=== PATIENT | male | born 1980 | race Caucasian/White ===

== ENCOUNTER 2018-07-09 22:29 | Inpatient (IN) | payer OTHER ==
[2018-07-09] MEDS: SOD CHLORIDE 0.9% 1,000 ML IV (23:30)
[2018-07-10] MEDS ORDERED: VANCOMYCIN IV PER PHARMACY XX (00:30)
[2018-07-10 01:01] LABS: ADD MAN DIFF? NO
[2018-07-10 01:05] LABS: WHITE BLOOD COUNT 13.1 10^3/ul (4.8-10.8)
[2018-07-10 01:05] LABS: BASOPHILS % 0.2 % (0.0-2.0); HEMATOCRIT 34.3 % (42.0-52.0); HEMOGLOBIN 11.4 g/dl (14.0-18.0); LYMPHOCYTES # 0.9 10^3/ul (0.8-2.9); LYMPHOCYTES % 6.5 % (15.0-51.0); MEAN CORPUSCULAR HGB CONC 33.2 g/dl (32.0-37.0); MEAN CORPUSCULAR VOLUME 93.2 fl (82.0-101.0); MEAN PLATELET VOLUME 10.8 fl (7.4-10.4); MONOCYTE # 0.9 10^3/ul (0.3-0.9); MONOCYTES % 6.7 % (0.0-11.0); NEUTROPHIL # 11.3 10^3/ul (1.6-7.5); PLATELET COUNT 196 10^3/UL (140-415); RED BLOOD COUNT 3.68 10^6/ul (4.70-6.10); RED CELL DISTRIBUTION WIDTH 12.2 % (11.5-14.5)
[2018-07-10 01:27] LABS: ANION GAP 12 (5-13); BLOOD UREA NITROGEN 23 mg/dl (7-20); CALCIUM 9.6 mg/dl (8.4-10.2); CARBON DIOXIDE 20 mmol/L (21-31); CHLORIDE 116 mmol/L (97-110); CREATININE 2.15 mg/dl (0.61-1.24); Estimated GFR 35 mL/min (>60); GLUCOSE 143 mg/dl (70-220); POTASSIUM 3.3 mmol/L (3.5-5.1); SODIUM 148 mmol/L (135-144)
[2018-07-10] MEDS ORDERED: VANCOMYCIN 1 GM 250 ML IVPB (03:00)
[2018-07-10] MEDS: VANCOMYCIN HCL 1.5 GM in SOD CHLORIDE 0.9% 250 ML IVPB (04:22)
[2018-07-10] MEDS: PANTOPRAZOLE 40 MG INJ IV (06:31)
[2018-07-10] MEDS: PIPER-TAZO 3.375 GM IV (PMX) 100 ML IVPB (06:31)
[2018-07-10] MEDS: LEVOTHYROXINE 75 MCG TAB PO (06:33)
[2018-07-10] MEDS: TESTOSTERONE 1% GEL 5 GM PACKET TOP (09:00)
[2018-07-10] MEDS: DIVALPROEX (EC) 500 MG TAB PO ×2 (09:03→23:07)
[2018-07-10] MEDS: predniSONE 2.5 MG TAB PO (09:03)
[2018-07-10] MEDS: OLANZAPINE 5 MG TAB PO ×2 (09:03→23:07)
[2018-07-10] MEDS: FLUDROCORTISONE 0.1 MG TAB PO (09:03)
[2018-07-10] MEDS: DOCUSATE SODIUM 100 MG CAP PO (09:04)
[2018-07-10] MEDS: BENZTROPINE 1 MG TAB PO ×2 (09:04→23:07)
[2018-07-10] MEDS: POTASSIUM CHLORIDE (SR) 20 MEQ TAB PO ×2 (09:47→13:59)
[2018-07-10 12:05] LABS: ADD UMIC YES; UR ASCORBIC ACID NEGATIVE (NEGATIVE); UR BILIRUBIN (Dip) NEGATIVE (NEGATIVE); UR BLOOD (Dip) NEGATIVE (NEGATIVE); UR CLARITY CLEAR (CLEAR); UR COLOR YELLOW (YELLOW); UR GLUCOSE (Dip) 1+ mg/dL (NEGATIVE); UR KETONES (Dip) NEGATIVE (NEGATIVE); UR LEUKOCYTE ESTERASE (Dip) NEGATIVE Leu/ul (NEGATIVE); UR NITRITE (Dip) NEGATIVE (NEGATIVE); UR RBC 4 /HPF (0-5); UR SPECIFIC GRAVITY (Dip) 1.012 (1.003-1.030); UR TOTAL PROTEIN (Dip) 1+ mg/dl (NEGATIVE); UR UROBILINOGEN (Dip) NEGATIVE (NEGATIVE); UR WBC 2 /HPF (0-5)
[2018-07-10] MEDS: CEPHALEXIN 250 MG CAP PO ×2 (13:59→23:08)
[2018-07-11] MEDS ORDERED: VANCOMYCIN 1 GM 250 ML IVPB (03:00)
[2018-07-11] MEDS: PANTOPRAZOLE 40 MG INJ IV (05:03)
[2018-07-11] MEDS: CEPHALEXIN 250 MG CAP PO ×2 (05:43→14:00)
[2018-07-11] MEDS: LEVOTHYROXINE 75 MCG TAB PO (07:00)
[2018-07-11] MEDS: TESTOSTERONE 1% GEL 5 GM PACKET TOP (09:00)
[2018-07-11] MEDS: DOCUSATE SODIUM 100 MG CAP PO (11:31)
[2018-07-11] MEDS: BENZTROPINE 1 MG TAB PO ×2 (11:31→21:16)
[2018-07-11] MEDS: DIVALPROEX (EC) 500 MG TAB PO ×2 (11:31→21:16)
[2018-07-11] MEDS: FLUDROCORTISONE 0.1 MG TAB PO (11:31)
[2018-07-11] MEDS: predniSONE 5 MG TAB PO (11:31)
[2018-07-11] MEDS: ACETAMINOPHEN 325 MG TAB PO (12:00)
[2018-07-11] MEDS: OLANZAPINE 5 MG TAB PO ×2 (12:19→22:15)
[2018-07-11] MEDS: AMOXICILLIN/CLAV 500 MG TAB PO (21:15)
[2018-07-11] MEDS: DOXYCYCLINE 100 MG TAB PO (21:16)
[2018-07-11 22:45] LABS: ANION GAP 14 (5-13); BLOOD UREA NITROGEN 22 mg/dl (7-20); CALCIUM 8.9 mg/dl (8.4-10.2); CARBON DIOXIDE 22 mmol/L (21-31); CHLORIDE 113 mmol/L (97-110); CREATININE 3.25 mg/dl (0.61-1.24); Estimated GFR 22 mL/min (>60); GLUCOSE 92 mg/dl (70-220); POTASSIUM 3.5 mmol/L (3.5-5.1); SODIUM 149 mmol/L (135-144)
[2018-07-12 04:59] LABS: ADD MAN DIFF? NO; BASOPHILS % 0.3 % (0.0-2.0); EOSINOPHILS % 0.4 % (0.0-7.0); HEMATOCRIT 31.9 % (42.0-52.0); HEMOGLOBIN 10.3 g/dl (14.0-18.0); LYMPHOCYTES # 1.7 10^3/ul (0.8-2.9); LYMPHOCYTES % 25.5 % (15.0-51.0); MEAN CORPUSCULAR HEMOGLOBIN 31.5 pg (29.0-33.0); MEAN CORPUSCULAR HGB CONC 32.3 g/dl (32.0-37.0); MEAN CORPUSCULAR VOLUME 97.6 fl (82.0-101.0); MEAN PLATELET VOLUME 10.3 fl (7.4-10.4); MONOCYTE # 0.9 10^3/ul (0.3-0.9); MONOCYTES % 13.8 % (0.0-11.0); NEUTROPHILS % 59.7 % (39.0-77.0); PLATELET COUNT 159 10^3/UL (140-415); RED BLOOD COUNT 3.27 10^6/ul (4.70-6.10); RED CELL DISTRIBUTION WIDTH 12.4 % (11.5-14.5)
[2018-07-12 04:59] LABS: WHITE BLOOD COUNT 6.7 10^3/ul (4.8-10.8)
[2018-07-12 05:26] LABS: PHOSPHORUS 3.9 mg/dl (2.5-4.9)
[2018-07-12 05:26] LABS: MAGNESIUM 1.9 mg/dl (1.7-2.5)
[2018-07-12 05:28] LABS: ANION GAP 9 (5-13); BLOOD UREA NITROGEN 23 mg/dl (7-20); CARBON DIOXIDE 21 mmol/L (21-31); CHLORIDE 120 mmol/L (97-110); CREATININE 3.17 mg/dl (0.61-1.24); Estimated GFR 22 mL/min (>60); GLUCOSE 101 mg/dl (70-220); SODIUM 150 mmol/L (135-144)
[2018-07-12 05:38] LABS: POTASSIUM 2.9 mmol/L (3.5-5.1)
[2018-07-12] MEDS: PANTOPRAZOLE (EC) 40 MG TAB PO (06:18)
[2018-07-12] MEDS: LEVOTHYROXINE 75 MCG TAB PO (06:18)
[2018-07-12] MEDS: POTASSIUM CHLORIDE (SR) 20 MEQ TAB PO ×2 (07:18→17:07)
[2018-07-12] MEDS: DOXYCYCLINE 100 MG TAB PO (08:38)
[2018-07-12] MEDS: DIVALPROEX (EC) 500 MG TAB PO ×3 (08:38→21:31)
[2018-07-12] MEDS: DOCUSATE SODIUM 100 MG CAP PO ×2 (08:38→09:00)
[2018-07-12] MEDS: BENZTROPINE 1 MG TAB PO ×3 (08:39→21:31)
[2018-07-12] MEDS: OLANZAPINE 5 MG TAB PO ×3 (08:39→21:31)
[2018-07-12] MEDS: AMOXICILLIN/CLAV 500 MG TAB PO (08:39)
[2018-07-12] MEDS: predniSONE 5 MG TAB PO (08:39)
[2018-07-12] MEDS ORDERED: predniSONE 5 MG TAB PO (09:00)
[2018-07-12] MEDS: ACETAMINOPHEN 325 MG TAB PO (09:38)
[2018-07-12] MEDS: TESTOSTERONE 1% GEL 5 GM PACKET TOP (09:38)
[2018-07-12] MEDS: FLUDROCORTISONE 0.1 MG TAB PO (09:38)
[2018-07-12] MEDS: CHLORPROMAZINE 25 MG INJ IM (10:54)
[2018-07-12] MEDS: SOD CHLORIDE 0.9% 500 ML IV (12:32)
[2018-07-12] MEDS: ONDANSETRON 4 MG INJ IV (13:04)
[2018-07-12] MEDS ORDERED: VANCOMYCIN IV PER PHARMACY XX (13:30)
[2018-07-12] MEDS: MEROPENEM 500MG/50 ML (PMX) 50 ML IVPB ×2 (14:41→21:31)
[2018-07-12] MEDS: VANCOMYCIN HCL 1.5 GM in SOD CHLORIDE 0.9% 250 ML IVPB (16:22)
[2018-07-12] MEDS: DEXTROSE 5% 1,000 ML IV (16:25)
[2018-07-12] MEDS: predniSONE 2.5 MG TAB PO ×2 (19:00→21:31)
[2018-07-12] MEDS: POTASSIUM CHLORIDE 40 MEQ in DEXTROSE 5% 1,000 ML IV (21:31)
[2018-07-13] MEDS: PANTOPRAZOLE (EC) 40 MG TAB PO (06:00)
[2018-07-13] MEDS: LEVOTHYROXINE 75 MCG TAB PO (06:52)
[2018-07-13] MEDS: DIVALPROEX (EC) 500 MG TAB PO ×2 (09:00→20:33)
[2018-07-13] MEDS ORDERED: predniSONE 2.5 MG TAB PO ×2 (09:00)
[2018-07-13] MEDS: BENZTROPINE 1 MG TAB PO ×2 (09:00→20:33)
[2018-07-13] MEDS: OLANZAPINE 5 MG TAB PO ×2 (09:00→20:33)
[2018-07-13] MEDS: DOCUSATE SODIUM 100 MG CAP PO (09:00)
[2018-07-13] MEDS: TESTOSTERONE 1% GEL 5 GM PACKET TOP (09:00)
[2018-07-13] MEDS: ACETAMINOPHEN 325 MG TAB PO (13:24)
[2018-07-13] MEDS: CHLORPROMAZINE 25 MG INJ IM (14:06)
[2018-07-13] MEDS: MEROPENEM 500MG/50 ML (PMX) 50 ML IVPB ×2 (14:53→20:33)
[2018-07-13] MEDS: ACETAMINOPHEN 1000MG/100ML IV 100 ML IVPB (14:53)
[2018-07-13] MEDS: POTASSIUM CHLORIDE 40 MEQ in DEXTROSE 5% 1,000 ML IV (14:54)
[2018-07-13] MEDS: HYDROCORTISONE 100 MG INJ IV ×2 (15:15→18:43)
[2018-07-13] MEDS: CASPOFUNGIN 70 MG in SOD CHLORIDE 0.9% 250 ML IVPB (15:43)
[2018-07-13] MEDS: POTASSIUM CHLORIDE 100 ML IVPB ×2 (16:49→20:33)
[2018-07-13 17:27] LABS: ADD MAN DIFF? NO
[2018-07-13 17:30] LABS: WHITE BLOOD COUNT 11.2 10^3/ul (4.8-10.8)
[2018-07-13 17:30] LABS: BASOPHILS % 0.2 % (0.0-2.0); EOSINOPHILS # 0.2 10^3/ul (0.0-0.5); EOSINOPHILS % 2.1 % (0.0-7.0); HEMOGLOBIN 9.5 g/dl (14.0-18.0); LYMPHOCYTES # 0.8 10^3/ul (0.8-2.9); LYMPHOCYTES % 7.4 % (15.0-51.0); MEAN CORPUSCULAR HEMOGLOBIN 30.6 pg (29.0-33.0); MEAN CORPUSCULAR HGB CONC 32.8 g/dl (32.0-37.0); MEAN CORPUSCULAR VOLUME 93.5 fl (82.0-101.0); MEAN PLATELET VOLUME 10.5 fl (7.4-10.4); PLATELET COUNT 122 10^3/UL (140-415); RED CELL DISTRIBUTION WIDTH 12.3 % (11.5-14.5)
[2018-07-13 17:50] LABS: PARTIAL THROMBOPLASTIN TIME 49.6 Sec (23.0-35.0)
[2018-07-13 17:52] LABS: PHOSPHORUS 3.5 mg/dl (2.5-4.9)
[2018-07-13 17:52] LABS: ANION GAP 8 (5-13); BLOOD UREA NITROGEN 19 mg/dl (7-20); CALCIUM 8.7 mg/dl (8.4-10.2); CARBON DIOXIDE 22 mmol/L (21-31); CHLORIDE 112 mmol/L (97-110); Estimated GFR 21 mL/min (>60); GLUCOSE 131 mg/dl (70-220); MAGNESIUM 1.7 mg/dl (1.7-2.5); POTASSIUM 3.3 mmol/L (3.5-5.1); SODIUM 142 mmol/L (135-144)
[2018-07-13 18:29] LABS: FREE THYROXINE INDEX (Calc) 2.93 ug/ml (0.65-3.89); T3 UPTAKE 41.8 % (23.5-40.5)
[2018-07-13] MEDS: SOD CHLORIDE 0.9% 250 ML IV (19:30)
[2018-07-13 20:02] LABS: LACTIC ACID 0.6 mmol/L (0.5-2.0)
[2018-07-13] MEDS: NS + KCL 20 MEQ 1,000 ML IV (23:50)
[2018-07-14] MEDS: LEVOTHYROXINE 100 MCG VIAL IV (05:31)
[2018-07-14] MEDS: PANTOPRAZOLE 40 MG INJ IV (05:31)
[2018-07-14 06:10] LABS: ADD MAN DIFF? NO
[2018-07-14 06:54] LABS: VANCOMYCIN,RANDOM 14.1 ug/ml
[2018-07-14 06:55] LABS: ANION GAP 9 (5-13); BLOOD UREA NITROGEN 23 mg/dl (7-20); CALCIUM 7.8 mg/dl (8.4-10.2); CARBON DIOXIDE 18 mmol/L (21-31); CHLORIDE 117 mmol/L (97-110); CREATININE 2.63 mg/dl (0.61-1.24); Estimated GFR 28 mL/min (>60); GLUCOSE 86 mg/dl (70-220); POTASSIUM 5.2 mmol/L (3.5-5.1); SODIUM 144 mmol/L (135-144)
[2018-07-14] MEDS: SODIUM POLYSTYRENE 15 GM KIT (POWDER + SORBITOL) PO (09:00)
[2018-07-14] MEDS: TESTOSTERONE 1% GEL 5 GM PACKET TOP (09:00)
[2018-07-14] MEDS: ENOXAPARIN 40 MG/0.4 ML SYG SC (09:30)
[2018-07-14 09:42] LABS: WHITE BLOOD COUNT 13.1 10^3/ul (4.8-10.8)
[2018-07-14 09:42] LABS: BASOPHILS % 0.1 % (0.0-2.0); EOSINOPHILS % 0.3 % (0.0-7.0); HEMATOCRIT 29.8 % (42.0-52.0); LYMPHOCYTES % 7.9 % (15.0-51.0); MEAN CORPUSCULAR HEMOGLOBIN 30.5 pg (29.0-33.0); MEAN CORPUSCULAR HGB CONC 33.6 g/dl (32.0-37.0); MEAN CORPUSCULAR VOLUME 90.9 fl (82.0-101.0); MEAN PLATELET VOLUME 10.9 fl (7.4-10.4); MONOCYTE # 0.9 10^3/ul (0.3-0.9); MONOCYTES % 6.9 % (0.0-11.0); NEUTROPHILS % 84.4 % (39.0-77.0); PLATELET COUNT 147 10^3/UL (140-415); RED BLOOD COUNT 3.28 10^6/ul (4.70-6.10); RED CELL DISTRIBUTION WIDTH 11.9 % (11.5-14.5)
[2018-07-14] MEDS: DIVALPROEX (EC) 500 MG TAB PO (10:00)
[2018-07-14] MEDS: HYDROCORTISONE 100 MG INJ IV ×2 (10:00→18:01)
[2018-07-14] MEDS: FLUDROCORTISONE 0.1 MG TAB PO (10:01)
[2018-07-14] MEDS: BENZTROPINE 1 MG TAB PO (10:01)
[2018-07-14] MEDS: OLANZAPINE 5 MG TAB PO (10:01)
[2018-07-14] MEDS: DOCUSATE SODIUM 100 MG CAP PO (10:01)
[2018-07-14] MEDS: DEXTROSE 5%-0.45% NACL 1,000 ML IV (10:03)
[2018-07-14] MEDS: MEROPENEM 500MG/50 ML (PMX) 50 ML IVPB ×2 (10:04→21:06)
[2018-07-14] MEDS: VANCOMYCIN 1 GM 250 ML IVPB (10:04)
[2018-07-14] MEDS: CHLORPROMAZINE 25 MG INJ IM (10:32)
[2018-07-14 13:20] LABS: POTASSIUM 4.3 mmol/L (3.5-5.1)
[2018-07-14] MEDS: CASPOFUNGIN 50 MG in SOD CHLORIDE 0.9% 250 ML IVPB (15:59)
[2018-07-15] MEDS: DIVALPROEX (EC) 500 MG TAB PO ×3 (00:01→22:26)
[2018-07-15] MEDS: NA BICARBONATE 650 MG TAB PO ×3 (00:01→22:27)
[2018-07-15] MEDS: BENZTROPINE 1 MG TAB PO ×3 (00:01→22:27)
[2018-07-15] MEDS: OLANZAPINE 5 MG TAB PO ×3 (00:01→22:27)
[2018-07-15] MEDS: PANTOPRAZOLE 40 MG INJ IV (06:04)
[2018-07-15] MEDS: LEVOTHYROXINE 100 MCG VIAL IV (06:04)
[2018-07-15] MEDS: DEXTROSE 5%-0.45% NACL 1,000 ML IV (09:00)
[2018-07-15] MEDS: TESTOSTERONE 1% GEL 5 GM PACKET TOP (09:00)
[2018-07-15] MEDS: MEROPENEM 500MG/50 ML (PMX) 50 ML IVPB ×2 (09:46→22:26)
[2018-07-15] MEDS: HYDROCORTISONE 100 MG INJ IV (09:51)
[2018-07-15] MEDS: FLUDROCORTISONE 0.1 MG TAB PO (09:54)
[2018-07-15] MEDS: DOCUSATE SODIUM 100 MG CAP PO (09:54)
[2018-07-15] MEDS: ENOXAPARIN 40 MG/0.4 ML SYG SC (10:08)
[2018-07-15] MEDS: CASPOFUNGIN 50 MG in SOD CHLORIDE 0.9% 250 ML IVPB (16:07)
[2018-07-15 21:05] LABS: ADD MAN DIFF? NO
[2018-07-15 21:07] LABS: BASOPHILS % 0.3 % (0.0-2.0); EOSINOPHILS # 0.1 10^3/ul (0.0-0.5); EOSINOPHILS % 0.9 % (0.0-7.0); HEMATOCRIT 32.1 % (42.0-52.0); HEMOGLOBIN 10.6 g/dl (14.0-18.0); LYMPHOCYTES # 1.5 10^3/ul (0.8-2.9); LYMPHOCYTES % 19.5 % (15.0-51.0); MEAN CORPUSCULAR HEMOGLOBIN 31.1 pg (29.0-33.0); MEAN CORPUSCULAR VOLUME 94.1 fl (82.0-101.0); MEAN PLATELET VOLUME 10.7 fl (7.4-10.4); MONOCYTE # 0.6 10^3/ul (0.3-0.9); NEUTROPHIL # 5.3 10^3/ul (1.6-7.5); NEUTROPHILS % 70.8 % (39.0-77.0); PLATELET COUNT 214 10^3/UL (140-415); RED BLOOD COUNT 3.41 10^6/ul (4.70-6.10)
[2018-07-15 21:07] LABS: WHITE BLOOD COUNT 7.5 10^3/ul (4.8-10.8)
[2018-07-15 21:25] LABS: ANION GAP 8 (5-13); BLOOD UREA NITROGEN 22 mg/dl (7-20); CALCIUM 7.8 mg/dl (8.4-10.2); CARBON DIOXIDE 21 mmol/L (21-31); CHLORIDE 113 mmol/L (97-110); CREATININE 2.19 mg/dl (0.61-1.24); Estimated GFR 34 mL/min (>60); GLUCOSE 111 mg/dl (70-220); POTASSIUM 3.4 mmol/L (3.5-5.1); SODIUM 142 mmol/L (135-144)
[2018-07-15] MEDS: predniSONE 2.5 MG TAB PO (22:26)
[2018-07-16 06:09] LABS: ADD MAN DIFF? NO
[2018-07-16 06:11] LABS: BASOPHILS % 0.2 % (0.0-2.0); EOSINOPHILS # 0.1 10^3/ul (0.0-0.5); EOSINOPHILS % 1.2 % (0.0-7.0); HEMATOCRIT 27.5 % (42.0-52.0); HEMOGLOBIN 9.3 g/dl (14.0-18.0); LYMPHOCYTES # 1.2 10^3/ul (0.8-2.9); LYMPHOCYTES % 20.3 % (15.0-51.0); MEAN CORPUSCULAR HEMOGLOBIN 31.2 pg (29.0-33.0); MEAN CORPUSCULAR HGB CONC 33.8 g/dl (32.0-37.0); MEAN CORPUSCULAR VOLUME 92.3 fl (82.0-101.0); MEAN PLATELET VOLUME 10.9 fl (7.4-10.4); MONOCYTE # 0.6 10^3/ul (0.3-0.9); MONOCYTES % 9.9 % (0.0-11.0); NEUTROPHILS % 67.9 % (39.0-77.0); PLATELET COUNT 206 10^3/UL (140-415); RED BLOOD COUNT 2.98 10^6/ul (4.70-6.10); RED CELL DISTRIBUTION WIDTH 12.1 % (11.5-14.5)
[2018-07-16 06:11] LABS: WHITE BLOOD COUNT 5.9 10^3/ul (4.8-10.8)
[2018-07-16] MEDS: PANTOPRAZOLE 40 MG INJ IV (06:12)
[2018-07-16] MEDS: LEVOTHYROXINE 100 MCG VIAL IV (06:12)
[2018-07-16 06:49] LABS: VANCOMYCIN,RANDOM 11.5 ug/ml
[2018-07-16 07:07] LABS: ANION GAP 10 (5-13); BLOOD UREA NITROGEN 19 mg/dl (7-20); CARBON DIOXIDE 22 mmol/L (21-31); CHLORIDE 113 mmol/L (97-110); CREATININE 2.22 mg/dl (0.61-1.24); Estimated GFR 34 mL/min (>60); GLUCOSE 88 mg/dl (70-220); POTASSIUM 3.3 mmol/L (3.5-5.1); SODIUM 145 mmol/L (135-144)
[2018-07-16] MEDS: ENOXAPARIN 40 MG/0.4 ML SYG SC (09:00)
[2018-07-16] MEDS: DOCUSATE SODIUM 250 MG CAP PO (09:00)
[2018-07-16] MEDS: BENZTROPINE 1 MG TAB PO ×2 (09:00→20:51)
[2018-07-16] MEDS: DIVALPROEX (EC) 500 MG TAB PO ×2 (09:00→20:51)
[2018-07-16] MEDS: NA BICARBONATE 650 MG TAB PO ×2 (09:00→20:51)
[2018-07-16] MEDS: OLANZAPINE 5 MG TAB PO ×2 (09:00→20:51)
[2018-07-16] MEDS: MEROPENEM 500MG/50 ML (PMX) 50 ML IVPB ×2 (09:00→11:32)
[2018-07-16] MEDS: predniSONE 2.5 MG TAB PO (09:00)
[2018-07-16 09:18] LABS: MAGNESIUM 1.8 mg/dl (1.7-2.5)
[2018-07-16 09:18] LABS: PHOSPHORUS 3.6 mg/dl (2.5-4.9)
[2018-07-16] MEDS: POTASSIUM CHLORIDE (SR) 20 MEQ TAB PO (11:23)
[2018-07-16] MEDS: HYDROCORTISONE 100 MG INJ IV ×2 (14:48→18:11)
[2018-07-16] MEDS: VANCOMYCIN 1 GM 250 ML IVPB (14:50)
[2018-07-16] MEDS: CASPOFUNGIN 50 MG in SOD CHLORIDE 0.9% 250 ML IVPB (17:11)
[2018-07-17] MEDS: PANTOPRAZOLE 40 MG INJ IV (05:35)
[2018-07-17] MEDS: LEVOTHYROXINE 100 MCG VIAL IV (05:35)
[2018-07-17 07:14] LABS: ADD MAN DIFF? NO
[2018-07-17 07:19] LABS: BASOPHILS % 0.2 % (0.0-2.0); EOSINOPHILS % 0.5 % (0.0-7.0); HEMATOCRIT 29.9 % (42.0-52.0); HEMOGLOBIN 9.7 g/dl (14.0-18.0); LYMPHOCYTES # 1.7 10^3/ul (0.8-2.9); LYMPHOCYTES % 26.3 % (15.0-51.0); MEAN CORPUSCULAR HEMOGLOBIN 30.7 pg (29.0-33.0); MEAN CORPUSCULAR HGB CONC 32.4 g/dl (32.0-37.0); MEAN CORPUSCULAR VOLUME 94.6 fl (82.0-101.0); MEAN PLATELET VOLUME 10.4 fl (7.4-10.4); MONOCYTE # 0.7 10^3/ul (0.3-0.9); MONOCYTES % 10.8 % (0.0-11.0); NEUTROPHIL # 3.9 10^3/ul (1.6-7.5); NEUTROPHILS % 61.2 % (39.0-77.0); PLATELET COUNT 211 10^3/UL (140-415); RED BLOOD COUNT 3.16 10^6/ul (4.70-6.10)
[2018-07-17 07:19] LABS: WHITE BLOOD COUNT 6.3 10^3/ul (4.8-10.8)
[2018-07-17 07:43] LABS: MAGNESIUM 1.9 mg/dl (1.7-2.5)
[2018-07-17 07:43] LABS: PHOSPHORUS 3.4 mg/dl (2.5-4.9)
[2018-07-17 07:48] LABS: ANION GAP 7 (5-13); BLOOD UREA NITROGEN 18 mg/dl (7-20); CALCIUM 8.4 mg/dl (8.4-10.2); CARBON DIOXIDE 24 mmol/L (21-31); CHLORIDE 116 mmol/L (97-110); CREATININE 2.05 mg/dl (0.61-1.24); Estimated GFR 37 mL/min (>60); GLUCOSE 85 mg/dl (70-220); POTASSIUM 3.5 mmol/L (3.5-5.1); SODIUM 147 mmol/L (135-144)
[2018-07-17] MEDS: ENOXAPARIN 40 MG/0.4 ML SYG SC (09:00)
[2018-07-17] MEDS: HYDROCORTISONE 100 MG INJ IV ×2 (09:02→18:05)
[2018-07-17] MEDS: OLANZAPINE 5 MG TAB PO ×2 (09:03→22:36)
[2018-07-17] MEDS: NA BICARBONATE 650 MG TAB PO (09:03)
[2018-07-17] MEDS: DOCUSATE SODIUM 250 MG CAP PO (09:03)
[2018-07-17] MEDS: BENZTROPINE 1 MG TAB PO ×2 (09:03→22:36)
[2018-07-17] MEDS: DIVALPROEX (EC) 500 MG TAB PO ×2 (09:03→22:36)
[2018-07-17] MEDS: FLUDROCORTISONE 0.1 MG TAB PO (09:03)
[2018-07-17] MEDS: MEROPENEM 500MG/50 ML (PMX) 50 ML IVPB ×2 (09:05→22:36)
[2018-07-17] MEDS: POTASSIUM CHLORIDE (SR) 20 MEQ TAB PO (10:51)
[2018-07-17] MEDS: CASPOFUNGIN 50 MG in SOD CHLORIDE 0.9% 250 ML IVPB (15:19)
[2018-07-18] MEDS: VANCOMYCIN 1 GM 250 ML IVPB (03:44)
[2018-07-18] MEDS: PANTOPRAZOLE (EC) 40 MG TAB PO (05:51)
[2018-07-18] MEDS: LEVOTHYROXINE 100 MCG VIAL IV (05:51)
[2018-07-18] MEDS: ENOXAPARIN 40 MG/0.4 ML SYG SC (09:00)
[2018-07-18] MEDS: HYDROCORTISONE 100 MG INJ IV ×2 (09:05→18:32)
[2018-07-18] MEDS: MEROPENEM 500MG/50 ML (PMX) 50 ML IVPB (09:06)
[2018-07-18] MEDS: BENZTROPINE 1 MG TAB PO ×2 (11:25→20:28)
[2018-07-18] MEDS: OLANZAPINE 5 MG TAB PO ×2 (11:26→20:28)
[2018-07-18] MEDS: DOCUSATE SODIUM 250 MG CAP PO (11:26)
[2018-07-18] MEDS: DIVALPROEX (EC) 500 MG TAB PO ×2 (11:27→20:28)
[2018-07-18 14:48] LABS: ADD MAN DIFF? NO
[2018-07-18 14:51] LABS: WHITE BLOOD COUNT 9.2 10^3/ul (4.8-10.8)
[2018-07-18 14:51] LABS: BASOPHILS % 0.3 % (0.0-2.0); EOSINOPHILS % 0.1 % (0.0-7.0); HEMATOCRIT 31.6 % (42.0-52.0); HEMOGLOBIN 10.2 g/dl (14.0-18.0); LYMPHOCYTES # 1.4 10^3/ul (0.8-2.9); LYMPHOCYTES % 15.2 % (15.0-51.0); MEAN CORPUSCULAR HEMOGLOBIN 31.5 pg (29.0-33.0); MEAN CORPUSCULAR HGB CONC 32.3 g/dl (32.0-37.0); MEAN CORPUSCULAR VOLUME 97.5 fl (82.0-101.0); MEAN PLATELET VOLUME 10.5 fl (7.4-10.4); MONOCYTE # 0.6 10^3/ul (0.3-0.9); MONOCYTES % 6.8 % (0.0-11.0); NEUTROPHILS % 76.5 % (39.0-77.0); PLATELET COUNT 238 10^3/UL (140-415); RED BLOOD COUNT 3.24 10^6/ul (4.70-6.10); RED CELL DISTRIBUTION WIDTH 12.1 % (11.5-14.5)
[2018-07-18 15:13] LABS: ANION GAP 5 (5-13); BLOOD UREA NITROGEN 19 mg/dl (7-20); CALCIUM 8.9 mg/dl (8.4-10.2); CARBON DIOXIDE 26 mmol/L (21-31); CHLORIDE 114 mmol/L (97-110); CREATININE 2.03 mg/dl (0.61-1.24); Estimated GFR 37 mL/min (>60); GLUCOSE 104 mg/dl (70-220); POTASSIUM 4.3 mmol/L (3.5-5.1); SODIUM 145 mmol/L (135-144)
[2018-07-18 15:41] LABS: MAGNESIUM 1.9 mg/dl (1.7-2.5)
[2018-07-18 15:41] LABS: PHOSPHORUS 3.6 mg/dl (2.5-4.9)
[2018-07-19] MEDS: PANTOPRAZOLE (EC) 40 MG TAB PO (05:40)
[2018-07-19] MEDS: LEVOTHYROXINE 100 MCG VIAL IV (05:40)
[2018-07-19] MEDS: OLANZAPINE 5 MG TAB PO ×2 (09:00→20:12)
[2018-07-19] MEDS: BENZTROPINE 1 MG TAB PO ×2 (09:00→20:12)
[2018-07-19] MEDS: DOCUSATE SODIUM 250 MG CAP PO (09:00)
[2018-07-19] MEDS: FLUDROCORTISONE 0.1 MG TAB PO (09:00)
[2018-07-19] MEDS: DIVALPROEX (EC) 500 MG TAB PO ×2 (09:00→20:12)
[2018-07-19] MEDS: ENOXAPARIN 40 MG/0.4 ML SYG SC (09:00)
[2018-07-19] MEDS: SOD CHLORIDE 0.9% 1,000 ML IV (14:25)
[2018-07-19] MEDS: HYDROCORTISONE 100 MG INJ IV ×2 (15:26→19:35)
[2018-07-19] MEDS: ACETAMINOPHEN 325 MG TAB PO (20:13)
[2018-07-20] MEDS: PANTOPRAZOLE (EC) 40 MG TAB PO (06:00)
[2018-07-20] MEDS: LEVOTHYROXINE 100 MCG VIAL IV (06:00)
[2018-07-20] MEDS: ENOXAPARIN 40 MG/0.4 ML SYG SC (09:00)
[2018-07-20] MEDS: HYDROCORTISONE 100 MG INJ IV ×2 (09:18→20:48)
[2018-07-20] MEDS: OLANZAPINE 5 MG TAB PO ×2 (09:18→20:48)
[2018-07-20] MEDS: DIVALPROEX (EC) 500 MG TAB PO ×2 (09:18→20:48)
[2018-07-20] MEDS: DOCUSATE SODIUM 250 MG CAP PO (09:18)
[2018-07-20] MEDS: BENZTROPINE 1 MG TAB PO ×2 (09:18→20:48)
[2018-07-20] MEDS: LORAZEPAM 2 MG INJ IV (09:19)
[2018-07-20] MEDS: SOD CHLORIDE 0.9% 1,000 ML IV ×2 (09:23→09:24)
[2018-07-20 14:46] LABS: ANION GAP 10 (5-13); BLOOD UREA NITROGEN 17 mg/dl (7-20); CALCIUM 9.1 mg/dl (8.4-10.2); CARBON DIOXIDE 25 mmol/L (21-31); CHLORIDE 110 mmol/L (97-110); CREATININE 1.94 mg/dl (0.61-1.24); Estimated GFR 39 mL/min (>60); GLUCOSE 98 mg/dl (70-220); POTASSIUM 3.6 mmol/L (3.5-5.1); SODIUM 145 mmol/L (135-144)
[2018-07-21] MEDS: PANTOPRAZOLE (EC) 40 MG TAB PO (05:07)
[2018-07-21] MEDS: LEVOTHYROXINE 100 MCG VIAL IV (05:08)
[2018-07-21] MEDS: SOD CHLORIDE 0.9% 1,000 ML IV (05:14)
[2018-07-21] MEDS: ENOXAPARIN 40 MG/0.4 ML SYG SC (09:00)
[2018-07-21] MEDS: BENZTROPINE 1 MG TAB PO ×2 (09:55→20:37)
[2018-07-21] MEDS: DOCUSATE SODIUM 250 MG CAP PO (09:55)
[2018-07-21] MEDS: DIVALPROEX (EC) 500 MG TAB PO ×2 (09:55→20:37)
[2018-07-21] MEDS: OLANZAPINE 5 MG TAB PO ×2 (09:55→20:37)
[2018-07-21] MEDS: HYDROCORTISONE 100 MG INJ IV ×2 (09:56→18:14)
[2018-07-22] MEDS: SOD CHLORIDE 0.9% 1,000 ML IV ×2 (01:34→20:27)
[2018-07-22] MEDS: LEVOTHYROXINE 100 MCG VIAL IV (05:32)
[2018-07-22] MEDS: PANTOPRAZOLE (EC) 40 MG TAB PO ×2 (05:32→06:00)
[2018-07-22] MEDS: HYDROCORTISONE 100 MG INJ IV (09:17)
[2018-07-22] MEDS: DIVALPROEX (EC) 500 MG TAB PO ×2 (09:19→20:26)
[2018-07-22] MEDS: OLANZAPINE 5 MG TAB PO ×2 (09:19→20:25)
[2018-07-22] MEDS: DOCUSATE SODIUM 250 MG CAP PO (09:19)
[2018-07-22] MEDS: BENZTROPINE 1 MG TAB PO ×2 (09:20→20:25)
[2018-07-22] MEDS: ENOXAPARIN 40 MG/0.4 ML SYG SC (09:26)
[2018-07-22] MEDS: FLUDROCORTISONE 0.1 MG TAB PO (09:30)
[2018-07-22] MEDS: predniSONE 1 MG TAB PO (18:15)
[2018-07-23] MEDS: PANTOPRAZOLE (EC) 40 MG TAB PO (06:03)
[2018-07-23] MEDS: LEVOTHYROXINE 50 MCG TAB PO (06:03)
[2018-07-23 07:01] LABS: ANION GAP 9 (5-13); BLOOD UREA NITROGEN 13 mg/dl (7-20); CALCIUM 8.7 mg/dl (8.4-10.2); CARBON DIOXIDE 27 mmol/L (21-31); CHLORIDE 112 mmol/L (97-110); CREATININE 1.78 mg/dl (0.61-1.24); Estimated GFR 43 mL/min (>60); GLUCOSE 93 mg/dl (70-220); POTASSIUM 3.2 mmol/L (3.5-5.1); SODIUM 148 mmol/L (135-144)
[2018-07-23] MEDS: DOCUSATE SODIUM 250 MG CAP PO (08:58)
[2018-07-23] MEDS: BENZTROPINE 1 MG TAB PO (08:58)
[2018-07-23] MEDS: DIVALPROEX (EC) 500 MG TAB PO (08:58)
[2018-07-23] MEDS: OLANZAPINE 5 MG TAB PO (08:58)
[2018-07-23] MEDS: predniSONE 1 MG TAB PO (08:59)
[2018-07-23] MEDS: ENOXAPARIN 40 MG/0.4 ML SYG SC (09:14)
[2018-07-23] MEDS: POTASSIUM CHLORIDE (SR) 20 MEQ TAB PO (10:14)
[2018-07-23] MEDS: POTASSIUM CHLORIDE 20 MEQ POWDER FOR ORAL SOLN PO (10:43)
== END 2018-07-23 19:05 | disposition still patient (30) | DRG 871 ==
LOC: 6WM 22:29 → 5EC 07-10 17:19
DX: A41.9 Sepsis, unspecified organism (principal); J18.9 Pneumonia, unspecified organism; N17.0 Acute kidney failure with tubular necrosis; N39.0 Urinary tract infection, site not specified; E87.2 Acidosis; E87.0 Hyperosmolality and hypernatremia; E27.1 Primary adrenocortical insufficiency; E87.6 Hypokalemia; F79 Unspecified intellectual disabilities; F25.0 Schizoaffective disorder, bipolar type; E29.9 Testicular dysfunction, unspecified; E03.8 Other specified hypothyroidism; E66.9 Obesity, unspecified; Z91.19 Patient's noncompliance with other medical treatment and regimen; Z68.31 Body mass index [BMI] 31.0-31.9, adult
CPT/HCPCS: 71045; 76705; 80048; 80202; 81001; 83605; 83735; 84100; 84132; 84436; 84443; 84479; 85025; 85730; 87040; 87086; 97162